=== PATIENT | male | born 1970 | race African-American/Black ===

== ENCOUNTER 2017-01-04 02:52 | Inpatient (IN) | payer BC ==
[2017-01-04] MEDS ORDERED: PNEUMONIA PROTOCOL UTILIZED 1 EACH MISC PO PRN (03:19)
[2017-01-04] MEDS ORDERED: IPRATROPIUM-ALBUTEROL 3 ML NEB INHALATION STA (03:25)
[2017-01-04] MEDS ORDERED: PIPERACILLIN-TAZOBACTAM 3.375 GM in DEXTROSE/WATER 1 50ML.BAG IVPB STA (03:25)
[2017-01-04] MEDS ORDERED: LEVOFLOXACIN 750MG-D5W PMX 750 MG in DEXTROSE/WATER 1 150ML.BAG IVPB STA (03:25)
[2017-01-04] MEDS ORDERED: SODIUM CHLORIDE 0.9% 1,000 ML IV STA (03:31)
[2017-01-04] MEDS ORDERED: MORPHINE SULFATE 4 MG/ML SYRINGE IVP STA (03:31)
--- NOTE | 2017-01-04 03:31 | ED ---
General Adult HPI - General Chief complaint: Shortness of Breath Stated complaint: SOB Time Seen by Provider: 01/04/17 03:00 Source: patient, EMS, RN notes reviewed, old records reviewed Mode of arrival: EMS Limitations: no limitations - History of Present Illness Initial comments: This is a 46-year-old male here for evaluation.Patient presents for evaluation regarding cough congestion shortness of breath. Patient was presented in transfer by EMS, history is obtained from patient and EMS. Patient is having severe cough and congestion, diagnosis of pneumonia. This time patient denies any new complaints he states that he is hungry - Related Data Allergies Allergy/AdvReac Type Severity Reaction Status Date / Time No Known Allergies Allergy Verified 01/04/17 02:59 Review of Systems ROS Statement: Those systems with pertinent positive or pertinent negative responses have been documented in the HPI. ROS Other: All systems not noted in ROS Statement are negative. Past Medical History Past Medical History: COPD History of Any Multi-Drug Resistant Organisms: None Reported Additional Past Surgical History / Comment(s): left eye repair Past Psychological History: No Psychological Hx Reported Smoking Status: Never smoker Past Alcohol Use History: None Reported Past Drug Use History: None Reported General Exam Limitations: no limitations General appearance: alert, in no apparent distress Head exam: Present: atraumatic, normocephalic, normal inspection Eye exam: Present: normal appearance, PERRL, EOMI. Absent: scleral icterus, conjunctival injection, periorbital swelling ENT exam: Present: normal exam, mucous membranes moist Neck exam: Present: normal inspection. Absent: tenderness, meningismus, lymphadenopathy Respiratory exam: Present: normal lung sounds bilaterally. Absent: respiratory distress, wheezes, rales, rhonchi, stridor Cardiovascular Exam: Present: regular rate, normal rhythm, normal heart sounds. Absent: systolic murmur, diastolic murmur, rubs, gallop, clicks GI/Abdominal exam: Present: soft, normal bowel sounds. Absent: distended, tenderness, guarding, rebound, rigid Extremities exam: Present: normal inspection, full ROM, normal capillary refill. Absent: tenderness, pedal edema, joint swelling, calf tenderness Back exam: Present: normal inspection Neurological exam: Present: alert, oriented X3, CN II-XII intact Psychiatric exam: Present: normal affect, normal mood Skin exam: Present: warm, dry, intact, normal color. Absent: rash Course Vital Signs 01/04/17 02:53 Temperature 100.1 F H Pulse Rate 96 Respiratory 20 Rate Blood Pressure 127/75 O2 Sat by Pulse 95 Oximetry - Reevaluation(s) Reevaluation #1: 01/04/17 03:30 Patient's transfer paperwork is reviewed Medical Decision Making - Medical Decision Making 38 male to the ER for evaluation regarding shortness of breath. Severe cough. Patient will be admitted for nosocomial pneumonia secondary to recent auscultation. Patient also had finding of fluid in his mediastinum, she was transferred over concern regarding this. Patient is in no acute distress P patient be admitted for IV antibiotics and cardiopulmonary resuscitation and management Disposition Clinical Impression: Acute exacerbation of chronic obstructive airways disease, Nosocomial pneumonia Disposition: ADMITTED IP TO THIS HOSP Condition: Fair Referrals: None,Stated [Primary Care Provider] - 1-2 days
[2017-01-04] MEDS: SODIUM CHLORIDE 0.9% 1,000 ML IV SCH ×3 (03:50→23:34)
[2017-01-04] MEDS ORDERED: PIPERACILLIN-TAZOBACTAM 3.375 GM in DEXTROSE/WATER 1 50ML.BAG IVPB SCH (06:00)
[2017-01-04] MEDS ORDERED: ENOXAPARIN 40 MG/0.4 ML SYRINGE SQ SCH (06:15)
[2017-01-04] MEDS: methylPREDNISolone SOD SUCCI 125 MG/2 ML VIAL IV SCH ×4 (06:29→23:33)
--- NOTE | 2017-01-04 06:36 | P.HPIM ---
History of Present Illness H&P Date: 01/04/17 Chief Complaint: Shortness of breath This is a 46-year-old male who was recently diagnosed with asthma/COPD was transferred here from [facility] ER for evaluation of shortness of breath , fever and possibly fluid in anterior mediastinum. 6 days prior to this admission, this last Thursday patient developed significant respiratory distress at work and had to be taken to the emergency department where he was found to be wheezy, and hypoxic and was treated with Solu-Medrol, nebulizer and ceftriaxone. Chart review shows that he received 1 dose of Zithromax at that time as well. Next day he was discharged home with Augmentin for sinusitis, Flonase and Mucinex. Patient felt that he has never truly improved and continued to be short of breath, dry cough, wheezing, sinus pressure, subjective fevers and chills with poor appetite and extreme fatigue. Yesterday his symptoms worsen and he came back to the emergency department where he was found to be tachycardic and hypoxic. He had CT angiogram that ruled out pulmonary embolism showed nodular and she bilateral pulmonary infiltrates and anterior mediastinal structure that was the radiologist most likely thymus with differential being small amount of blood. Patient was referred to our institution for further correlation. Review of blood work from the outside ER showed normal white blood cell count increased as in the [place] and monocytes. Unremarkable electrolytes 2 years prior to this admission patient started developing intermittent shortness of breath and wheezing with dry cough. 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 No chest pain or hemoptysis, orthopnea, PND or leg swelling. About 9 months ago since his symptoms were not improving he was referred to pulmonary function tests by his PCP that revealed bronchoobstructive changes and he was diagnosed with COPD. Patient continued to work in the same place with continuous exposure without protective equipment. He is symptoms of shortness of breath and cough typically get worse during week and somewhat better on weekends. He has had multiple visits to emergency department for shortness of breath, wheezing, sinus congestion. This current episode 6 days ago actually started at work after exposure to dust and again not wearing protective. Patient is lifelong nonsmoker. Emergency department he should receive a breathing treatment antibiotics and steroids and currently feeling somewhat better. He denies any travel, pets, sick contacts, diarrhea abdominal pain chest pain. She's been having some epigastric discomfort for which a month ago he underwent EGD that was normal. Review of Systems Constitutional: Reports anorexia, Reports chills, Reports fatigue, Reports fever , Reports malaise, Reports sweats, Reports weakness Cardiovascular: Reports decreased exercise tolerance, Reports dyspnea on exertion, Denies chest pain, Denies paroxysmal nocturnal dyspnea Respiratory: Reports as per HPI Gastrointestinal: Reports as per HPI Genitourinary: Denies nocturia, Denies polyuria Musculoskeletal: Denies myalgias Integumentary: Denies pruritus, Denies rash Neurological: Denies numbness, Denies weakness Psychiatric: Denies anxiety, Denies depression Endocrine: Reports weight change, Denies fatigue Allergic/Immunologic: Reports allergic rhinitis, Reports persistent infections, Reports wheezing Past Medical History Past Medical History: COPD History of Any Multi-Drug Resistant Organisms: None Reported Additional Past Surgical History / Comment(s): left eye repair Past Psychological History: No Psychological Hx Reported Smoking Status: Never smoker Past Alcohol Use History: None Reported Past Drug Use History: None Reported - Past Family History Mother Family Medical History: Diabetes Mellitus, Hypertension Father Family Medical History: No Reported History Medications and Allergies Allergies Allergy/AdvReac Type Severity Reaction Status Date / Time No Known Allergies Allergy Verified 01/04/17 02:59 Physical Exam Vitals: Vital Signs Temp Pulse Pulse Resp BP BP Pulse Ox 01/04/17 05:16 97.6 F 98 20 110/70 96 01/04/17 04:44 97.5 F L 98 18 123/77 97 01/04/17 04:07 98 01/04/17 04:00 20 01/04/17 03:56 94 20 123/77 99 01/04/17 03:41 94 01/04/17 02:53 100.1 F H 96 20 127/75 95 Intake and Output 01/03/17 01/03/17 01/04/17 14:59 22:59 06:59 Other: Weight 70.307 kg Patient Weight 01/04/17 06:59 Weight 70.307 kg - Constitutional General appearance: cooperative, no acute distress, thin - EENT Eyes: EOMI, PERRLA, no scleral icterus - Neck Neck: no lymphadenopathy, no stridor, no thyromegaly - Respiratory Respiratory: bilateral: CTA, diminished, negative: rales, rhonchi, wheezing, prolonged expiration - Cardiovascular Rhythm: regular Heart sounds: normal: S1, S2 - Gastrointestinal General gastrointestinal: no organomegaly, soft, no tenderness - Integumentary Possible clubbing - Neurologic Neurologic: CNII-XII intact - Psychiatric Psychiatric: A&O x's 3 Thrombosis Risk Factor Assmnt - DVT/VTE Prophylaxis DVT/VTE Prophylaxis: Mechanical Prophylaxis ordered - Choose All That Apply Any of the Below Risk Factors Present?: Yes Each Factor Represents 1 point: Abnormal pulmonary function (COPD), Age 41-60 years Other Risk Factors: No Other congenital or acquired thrombophilia - If yes, enter type in comment: No Thrombosis Risk Factor Assessment Total Risk Factor Score: 2 Thrombosis Risk Factor Assessment Level: Low Risk Assessment and Plan (1) Acute respiratory failure with hypoxia Narrative/Plan: As documented in notes and emergency department with oxygen 89% This patient has had prolonged respiratory difficulties for 2 year with recent worsening and continuous exposure to dust at work CT shows some bilateral patchy infiltrates He also has serous criteria with tachycardia and fever At this point of time infectious versus noninfectious etiology has been considered Infectious etiology being typical or atypical bronchopneumonia and bronchitis/ bronchiolitis. Interestingly patient did not receive full coverage for neither of this in the previous institution, so at this point of time starting continue levofloxacin We'll obtain sputum Gram stain and culture. Patient able to produce sputum and blood cultures ordered, and I will obtain Legionella antigen as well All to noninfectious causes reactive airway dysfunction syndrome and hypersensitivity pneumonitis are considered Continue Solu-Medrol and DuoNeb treatments Pulmonology service has been consulted and we will await their further input Re: Findings in anterior mediastinotomy we will have to discuss this with our radiologists here to clarify this finding Patient strongly advised to wear protective equipment work or change work space Status: Acute (2) Acute sinusitis Narrative/Plan: This could be a part of his exposure to allergen Joi my differential would be some sort of vasculitis His creatinine was normal I'm repeating the blood work and we'll obtain UA Continue Flonase and anti- congestion and antibiotic Status: Acute Time with Patient: Greater than 30
[2017-01-04] MEDS: IPRATROPIUM-ALBUTEROL 3 ML NEB INHALATION SCH ×4 (07:06→20:49)
[2017-01-04 07:54] LABS: Basophils % (A) 0 %; CH 28.8; Eosinophils # (A) 0.1 k/uL (0-0.7); Eosinophils % (A) 1 %; HCT 41.9 % (39.0-53.0); HDW 2.69; HGB 13.6 gm/dL (13.0-17.5); Luc # (Auto) 0.07; Luc % (Auto) 1; Lymphocytes # (A) 0.4 k/uL (1.0-4.8); Lymphocytes % (A) 6 %; MCH 29.5 pg (25.0-35.0); MCHC 32.5 g/dL (31.0-37.0); MCV 90.6 fL (80.0-100.0); Mean Platelet Volume 7.5; Monocytes # (A) 0.2 k/uL (0-1.0); Monocytes % (A) 3 %; Neutrophils # (A) 5.9 k/uL (1.3-7.7); Neutrophils % (A) 89 %; RBC 4.62 m/uL (4.30-5.90); RDW 13.9 % (11.5-15.5); WBC 6.6 k/uL (3.8-10.6); WBC (Perox) 6.51
[2017-01-04 08:09] LABS: ALT 27 U/L (21-72); AST 14 U/L (17-59); Alkaline Phosphatase 91 U/L (38-126); Anion Gap 11 mmol/L; Blood Urea Nitrogen 11 mg/dL (9-20); Calcium 8.2 mg/dL (8.4-10.2); Carbon Dioxide 20 mmol/L (22-30); Chloride 109 mmol/L (98-107); Glucose 119 mg/dL (74-99); Non-African American GFR(MDRD) >60 (>60 ml/min/1.73 sqM); Potassium 4.5 mmol/L (3.5-5.1); Sodium 140 mmol/L (137-145); Total Bilirubin 1.4 mg/dL (0.2-1.3); Total Protein 7.1 g/dL (6.3-8.2)
[2017-01-04 08:58] LABS: Appearance,Urine Clear (Clear); Bilirubin,Urine Negative (Negative); Glucose,Urine (UA) Negative (Negative); Ketones,Urine Trace (Negative); Leukocyte Esterase,Urine Negative (Negative); Nitrite,Urine Negative (Negative); PH, Urine 6.5 (5.0-8.0); Protein,Urine Negative (Negative); Specific Gravity,Urine 1.007 (1.001-1.035); UA Billing (MACRO vs. MICRO) CHEM; Urobilinogen,Urine <2.0 mg/dL (<2.0)
[2017-01-04] MEDS: FLUTICASONE 50MCG/SPRAY NASAL 16GM EA NOSTRIL SCH (09:27)
[2017-01-04] MEDS: OXYMETAZOLINE 0.05% NASL SPRAY 1 SPRAY BOTTLE NASAL SCH ×2 (09:27→21:14)
--- NOTE | 2017-01-04 10:09 | XR ---
EXAMINATION TYPE: XR chest 2V DATE OF EXAM: 01/04/2017 HISTORY: sob. REFERENCE: NONE. FINDINGS: There is metallic shrapnel in the left hemithorax. Lung volumes are prominent. The lungs ar e clear. Pleural space are clear. Heart size is normal. IMPRESSION: 1. COPD. 2. EVIDENCE OF PREVIOUS PENETRATING TRAUMA TO THE LEFT CHEST.
--- NOTE | 2017-01-04 10:35 | P.PN ---
Subjective Principal diagnosis: The patient is a 46-year-old -[place] male with no known history of smoking that was recently diagnosed with COPD that was transferred here for acute COPD exacerbation, the patient had a CT of his chest that showed bilateral patchy infiltrates, he presented with sirs criteria with fever and tachycardia, he started on systemic steroids scheduled and when necessary breathing treatments and Levaquin. Apparently the patient was previously hospitalized overnight in [place] for an acute COPD exacerbation and discharged home and Augmentin for sinusitis. The patient denies being given any steroids to go home with, The patient does give a history of environmental possible exposure to fiberglass. Patient still complain of shortness of air but does feel marginally better today , denies any chest pain or pleuritic discomfort. No acute events overnight Objective - Vital Signs Vital signs: Vital Signs Temp 98.5 F 01/04/17 07:00 Pulse 96 01/04/17 07:10 Resp 20 01/04/17 07:00 BP 116/75 01/04/17 07:00 Pulse Ox 96 01/04/17 07:00 Intake & Output 01/03/17 01/04/17 01/04/17 18:59 06:59 18:59 Output Total 350 Balance -350 Weight 70.307 kg Output: Urine 350 - Exam Constitutional: No acute distress, conversant, pleasant Eyes: Anicteric sclerae, moist conjunctiva, no lid-lag, PERRLA ENMT: NC/AT,Oropharynx clear, no erythema, exudates Neck:Supple, FROM, no masses, or JVD, No carotid bruits; No thyromegaly Lungs: Minimal wheezes poor aeration, Normal respiratory effort, no accessory muscle use Cardiovascular: Heart regular in rate and rhythm, No murmurs, gallops, or rubs no peripheral edema Abdominal: Soft Nontender, nom distended, no guarding, no rebound or rigidity, Normoactive bowel sounds No hepatomegaly, No splenomegaly, No palpable mass No abdominal wall hernia noted Skin: Normal temperature, tone, texture, turgor, No induration No subcutaneous nodules, No rash, lesions, No ulcers Extremities:No digital cyanosis No clubbing, Pedal pulses intact and symmetrical Radial pulses intact and symmetrical Normal gait and station, No calf tenderness Psychiatric: Alert and oriented to person, place and time, Appropriate affect Intact judgement Neuro: Muscles Strength 5/5 in all 4 extremities, Sensation to light touch grossly present throughout, Cranial nerves II-XII grossly intact. No focal sensory deficits - Labs CBC & Chem 7: 01/04/17 07:12 01/04/17 07:12 Labs: Abnormal Lab Results - Last 24 Hours (Table) 01/04/17 01/04/17 01/04/17 Range/Units 07:12 07:12 08:00 Lymphocytes # 0.4 L (1.0-4.8) k/uL Chloride 109 H (98-107) mmol/L Carbon Dioxide 20 L (22-30) mmol/L Glucose 119 H (74-99) mg/dL Calcium 8.2 L (8.4-10.2) mg/dL Total Bilirubin 1.4 H (0.2-1.3) mg/dL AST 14 L (17-59) U/L Urine Ketones Trace H (Negative) Assessment and Plan (1) Acute exacerbation of chronic obstructive airways disease Narrative/Plan: Likely secondary to interstitial pneumonia/ ILD versus hypersensitivity pneumonitis * Patient presented with dyspnea cough and fever * Continue current treatment plan with systemic steroids scheduled and when necessary bronchodilator breathing treatments and IV antibiotics * Blood cultures obtained and sent, will check urine studies and we'll try to obtain a sputum culture and start patient on Mucinex * Awaiting further recommendation from pulmonary consult Status: Acute (2) Interstitial pneumonia Status: Acute (3) Acute sinusitis Status: Acute
[2017-01-04] MEDS: guaiFENesin 600 MG TABLET.ER PO SCH ×2 (15:14→21:15)
[2017-01-04] MEDS: MORPHINE SULFATE 4 MG/ML SYRINGE IVP PRN (21:12)
[2017-01-05] MEDS ORDERED: ALPRAZolam 0.25 MG TAB PO PRN (01:11)
[2017-01-05] MEDS: IPRATROPIUM-ALBUTEROL 3 ML NEB INHALATION PRN (01:17)
[2017-01-05] MEDS ORDERED: LEVOFLOXACIN 750MG-D5W PMX 750 MG in DEXTROSE/WATER 1 150ML.BAG IVPB SCH (06:00)
[2017-01-05] MEDS: methylPREDNISolone SOD SUCCI 125 MG/2 ML VIAL IV SCH ×4 (06:43→23:35)
[2017-01-05 06:52] LABS: Basophils % (A) 0 %; CH 28.8; CHCM 31.8; Eosinophils # (A) 0.1 k/uL (0-0.7); Eosinophils % (A) 1 %; HCT 42.2 % (39.0-53.0); HDW 2.77; HGB 13.5 gm/dL (13.0-17.5); Luc # (Auto) 0.23; Luc % (Auto) 2; Lymphocytes # (A) 0.6 k/uL (1.0-4.8); Lymphocytes % (A) 6 %; MCH 29.1 pg (25.0-35.0); MCHC 32.1 g/dL (31.0-37.0); MCV 90.9 fL (80.0-100.0); Mean Platelet Volume 7.3; Monocytes % (A) 8 %; Neutrophils # (A) 9.7 k/uL (1.3-7.7); Neutrophils % (A) 84 %; RBC 4.64 m/uL (4.30-5.90); WBC 11.6 k/uL (3.8-10.6); WBC (Perox) 12.45
[2017-01-05] MEDS ORDERED: SODIUM CHLORIDE 0.9% 1,000 ML IV ONE (07:09)
[2017-01-05] MEDS: IPRATROPIUM-ALBUTEROL 3 ML NEB INHALATION SCH ×4 (07:24→19:31)
[2017-01-05] MEDS: ALPRAZolam 0.25 MG TAB PO PRN (07:25)
--- NOTE | 2017-01-05 07:53 | XR ---
EXAMINATION TYPE: XR chest 2V DATE OF EXAM: 01/05/2017 COMPARISON: Prior chest x-ray 01/04/2017 HISTORY: Pneumonia TECHNIQUE: Frontal and lateral views of the chest are obtained. FINDINGS: Metallic foreign body again noted over the left lower lobe. No pneumothorax or pleural eff usion. Heart is small. No evident airspace disease. Patient is rotated. Pulmonary vascularity and hil a are stable. IMPRESSION: No acute cardiopulmonary process. Stable exam. Radiopaque foreign body is unchanged.
[2017-01-05 08:31] LABS: Anion Gap 10 mmol/L; Blood Urea Nitrogen 9 mg/dL (9-20); Calcium 8.3 mg/dL (8.4-10.2); Carbon Dioxide 24 mmol/L (22-30); Chloride 108 mmol/L (98-107); Glucose 121 mg/dL (74-99); Non-African American GFR(MDRD) >60 (>60 ml/min/1.73 sqM); Potassium 3.8 mmol/L (3.5-5.1); Sodium 142 mmol/L (137-145)
[2017-01-05] MEDS: guaiFENesin 600 MG TABLET.ER PO SCH ×2 (10:59→21:11)
[2017-01-05] MEDS: OXYMETAZOLINE 0.05% NASL SPRAY 1 SPRAY BOTTLE NASAL SCH ×2 (10:59→23:30)
[2017-01-05] MEDS: FLUTICASONE 50MCG/SPRAY NASAL 16GM EA NOSTRIL SCH (10:59)
[2017-01-05] MEDS: SODIUM CHLORIDE 0.9% 1,000 ML IV SCH ×2 (11:00→21:12)
[2017-01-05 12:09] VITALS: BMI 20.4
[2017-01-05] MEDS ORDERED: RX INFO: IV CONTRAST WAS GIVEN 1 EACH MISC MISCELLANE PRN (13:18)
[2017-01-05] MEDS: BENZOCAINE/MENTHOL LOZENG 1 EACH LOZENGE MUCOUS MEM PRN ×3 (13:23→21:29)
--- NOTE | 2017-01-05 15:39 | CT ---
EXAMINATION TYPE: CT soft tissue neck w con DATE OF EXAM: 01/05/2017 HISTORY: Difficulty swallowing, cough and chest pain COMPARISON: NONE CT DLP: 844 mGycm. Automated Exposure Control for Dose Reduction was Utilized. TECHNIQUE: CT scan of the neck is performed with IV Contrast, patient injected with 100 mL of Omnipa que 300, axial images are obtained, coronal and sagittal reformatted images are reviewed. FINDINGS: Airway: Nasopharyngeal airway is patent. There is some prominence of the adenoid tonsils posterior na sopharynx. Oropharyngeal airway is narrowed due to palatine tonsillar prominence. Region of epiglotti s and vallecula appears within normal limits. Hypopharyngeal airway is felt within normal limits. Thy roid gland is felt within normal limits. Visualized lung apices are clear Parotid/submandibular glands: No gross abnormality seen. Carotid/Vascular Structures: No significant plaque or stenosis at the carotid bulb level bilaterally Osseous Structures: There is S-shaped scoliosis in the cervical thoracic spine on coronal images. The re is loss of normal curvature on sagittal images. There is moderate spurring and disc space narrowin g at C4-C5 and C5-C6 levels. Other: There is completely opacified ethmoid and sphenoid sinuses bilaterally without suspicious jenni ical destruction,. There is new moderate mucosal thickening with dependent air-fluid levels in both m axillary sinuses, right worse than left. There is completely opacified frontal sinuses. Patient has very little fat making evaluation suboptimal. There appears to be mild to moderate diffus e fluid and fat stranding submandibular level bilaterally with scattered prominent but subcentimeter lymph nodes. There are prominent lymph nodes throughout the supraclavicular region and bilateral neck some encasing adenopathy difficult to exclude, for reference left infraclavicular region adjacent to thyroid gland. Curvilinear soft tissue anterior superior mediastinum could reflect thymus tissue which would be abno rmal in patient this age IMPRESSION: 1. Prominent paranasal pansinusitis. 2. Nonspecific but suspicious bilateral neck adenopathy consider infectious, inflammatory, or neoplas tic etiology. Consider PET/CT correlation. 3. Abnormal curvilinear soft tissue anterior superior mediastinum suspicious for thymic rebound or le teddy. Clinical correlation advised.
--- NOTE | 2017-01-05 15:58 | P.CNPUL ---
History of Present Illness Consult date: 01/05/17 Reason for consult: pneumonia History of present illness: 46-year-old -Greek male patient was transferred from [facility] because of shortness of breath and suspected pneumonia. The patient started having increased cough, along with some burning sensation over his neck area and the posterior throat. His cough was quite vigorous and he was bringing up minimal amount of sputum. No hemoptysis. No pleurisy. No chest pain. He started getting progressively weak and he also reported diminished appetite and subjective sensation of fever. For that reason the patient went to the [facility] with a CAT scan of the chest was done and showed hazy pulmonary infiltrates more so on the left lower lobe posteriorly and some minimal changes in the right side in addition. There was also some superior mediastinal fullness probably later to a thymic ordered and extension into the superior mediastinum. No lymphadenopathy. No lung masses or lesions. The patient accordingly was transferred to [facility] for further evaluation and treatment. He was seen by the medical group and he was started on antibiotics and currently is on a course of Levaquin. Since he came into the hospital, the patient has remained afebrile. No fever. No chills. No leukocytosis. He claims that he has underlying COPD. He has smoked probably 20 -pack-years and he has been exposed to fiberglass as used to work for [employer] in [place] [employer] [facility] for total of 3 years and he describes her work environment to be extremely contaminated with fiberglass particles another industrial solution. Along with his ongoing respiratory difficulties the patient is having fullness and congestion his sinuses along with significant nasal congestion and drainage and postnasal drip. For all this reasons upon reconsultation was requested. No nausea. No vomiting. No change in mental status. No other complaints otherwise. Review of Systems Constitutional: Reports anorexia, Reports chills, Reports fatigue, Reports fever , Reports malaise, Reports sweats, Reports weakness Cardiovascular: Reports decreased exercise tolerance, Reports dyspnea on exertion, Denies chest pain, Denies paroxysmal nocturnal dyspnea Respiratory: Reports as per HPI Gastrointestinal: Reports as per HPI Genitourinary: Denies nocturia, Denies polyuria Musculoskeletal: Denies myalgias Integumentary: Denies pruritus, Denies rash Neurological: Denies numbness, Denies weakness Psychiatric: Denies anxiety, Denies depression Endocrine: Reports weight change, Denies fatigue Allergic/Immunologic: Reports allergic rhinitis, Reports persistent infections, Reports wheezing Head and neck the patient is having excessive nasal congestion and stuffiness in addition to burning sensation in the throat. No difficulties in swallowing. Past Medical History Past Medical History: COPD History of Any Multi-Drug Resistant Organisms: None Reported Additional Past Surgical History / Comment(s): left eye repair Past Psychological History: No Psychological Hx Reported Smoking Status: Never smoker Past Alcohol Use History: None Reported Past Drug Use History: None Reported - Past Family History Mother Family Medical History: Diabetes Mellitus, Hypertension Father Family Medical History: No Reported History Medications and Allergies Home Medications Medication Instructions Recorded Confirmed Type Albuterol Inhaler [Ventolin Hfa 2 puff INHALATION RT-Q6H PRN 01/04/17 01/04/17 History Inhaler] Albuterol Nebulized [Ventolin 2.5 mg INHALATION RT-QID 01/04/17 01/04/17 History Nebulized] Albuterol Sulfate [Proair Hfa] 2 puff INHALATION RT-Q6H PRN 01/04/17 01/04/17 History Amoxicillin/Potassium Clav 1 tab PO BID 01/04/17 01/04/17 History [Augmentin 875-125 Tablet] Fluticasone Nasal [place] [Flonase 1 spray EA NOSTRIL DAILY 01/04/17 01/04/17 History Nasal [place]] Ipratropium Nebulized [Atrovent 0.5 mg INHALATION RT-Q6H 01/04/17 01/04/17 History Nebulized] Loratadine [Claritin] 10 mg PO DAILY 01/04/17 01/04/17 History guaiFENesin [Mucinex] 1,200 mg PO DAILY PRN 01/04/17 01/04/17 History Allergies Allergy/AdvReac Type Severity Reaction Status Date / Time No Known Allergies Allergy Verified 01/04/17 08:59 Physical Exam Vitals: Vital Signs Temp Pulse Pulse Resp BP Pulse Ox 01/05/17 15:47 92 01/05/17 15:32 92 01/05/17 14:58 97.6 F 108 H 12 119/65 97 01/05/17 11:33 88 01/05/17 11:23 84 01/05/17 07:41 104 H 01/05/17 07:24 108 H 01/05/17 07:00 96.2 F L 103 H 18 120/91 95 01/05/17 01:29 96 01/05/17 01:17 92 01/04/17 23:00 97.4 F L 91 18 124/75 96 01/04/17 21:01 80 01/04/17 20:49 88 01/04/17 16:22 92 01/04/17 16:17 92 Intake and Output 01/05/17 01/05/17 01/05/17 06:59 14:59 22:59 Intake Total 1200 Output Total 1400 Balance -200 Intake: Intake, IV Titration 1200 Amount Sodium Chloride 0.9% 1, 1200 000 ml @ 100 mls/hr IV . Q10H ROBERTO Rx#:[id number] Output: Urine 1400 Other: # Voids 3 Weight 70.307 kg Patient Weight 01/06/17 06:59 Weight 70.307 kg Gen. appearance the patient is calm and comfortable and is not in acute distress. Head exam was generally normal. There was no scleral icterus or corneal arcus. Mucous membranes were moist. Neck is supple and there is positive JVDs. No lesions or masses can be palpated over the neck. There may be an underlying slightly enlargement of the thyroid gland. Yet there is no neck stiffness. No significant lymphadenopathy in his neck or the supraclavicular area. Lung sounds are diminished bilaterally. The patient is getting a very poor inspiratory effort. Unable to do a complete lung exam as the patient's breathing is quite erratic and he is taking only very shallow breaths. Scattered rales can be. The lung bases bilaterally.Cardiac exam revealed the PMI to be normally situated and sized. The rhythm was regular and no extrasystoles were noted during several minutes of auscultation. The first and second heart sounds were normal and physiologic splitting of the second heart sound was noted. There were no murmurs, rubs, clicks, or gallops.Abdominal exam revealed normal bowel sounds. The abdomen was soft, non- tender, and without masses, organomegaly, or appreciable enlargement of the abdominal aorta. Abdomen extremitiesExamination of the extremities revealed easily palpable radial, femoral and pedal pulses. There was no cyanosis, clubbing or edema. Neurologically the patient is awake 3, awake and alert and there is no focal neurological deficits. Skin examination is negative for any rashes or ulcers or wounds. Skeletal exam is normal for any fractures or any major deformities. Results - Laboratory Findings CBC and BMP: 01/05/17 06:40 01/05/17 07:55 Abnormal lab findings: Abnormal Labs 01/04/17 01/04/17 01/04/17 07:12 07:12 08:00 WBC Neutrophils # Lymphocytes # 0.4 L Chloride 109 H Carbon Dioxide 20 L Glucose 119 H Plasma Lactic Acid Miguel Calcium 8.2 L Total Bilirubin 1.4 H AST 14 L Urine Ketones Trace H 01/04/17 01/05/17 01/05/17 23:00 06:12 06:40 WBC 11.6 H Neutrophils # 9.7 H Lymphocytes # 0.6 L Chloride Carbon Dioxide Glucose Plasma Lactic Acid Miguel 2.2 H* 2.9 H* Calcium Total Bilirubin AST Urine Ketones 01/05/17 07:55 WBC Neutrophils # Lymphocytes # Chloride 108 H Carbon Dioxide Glucose 121 H Plasma Lactic Acid Miguel Calcium 8.3 L Total Bilirubin AST Urine Ketones - Diagnostic Findings Chest x-ray: image reviewed Assessment and Plan Plan: Assessment 1 acute pneumonia most significant in the left lower lobe posteriorly along with some limited haziness in the right. Possible community-acquired. No evidence of any chronic interstitial lung disease or any advanced emphysematous change on the CAT scan of the chest 2 questionable thymic growth in the anterior mediastinum. We'll review this with radiology 3 sinusitis suspected in addition to ongoing pain in the posterior oropharynx. On examination the patient has jugular vein Distention without any clear neck masses. We'll proceed with a CAT scan of the neck accordingly. 4 smoker 5 occupational exposure to fiberglass dust Plan Continue Levaquin as broad-spectrum antibiotics for pneumonia and sinus infection. Sputum Gram stain and culture. DuoNeb nebulized treatments around the clock. Proceed with a CAT scan of the neck. Proceed with addition of Tussionex for cough and Cepacol dosages. Continue with systemic steroids. We' ll continue to follow. Will also check the CAT scan of the chest films would radiology to make sure there is no mediastinal lesions or masses.
--- NOTE | 2017-01-05 16:49 | P.PN ---
Subjective Principal diagnosis: Shortness of breath Patient complaining of sore throat and shortness of breath he says he is better with oxygen does have complaints of cough denies any fever Objective - Vital Signs Vital signs: Vital Signs Temp 96.2 F L 01/05/17 07:00 Pulse 104 H 01/05/17 07:41 Resp 18 01/05/17 07:00 BP 120/91 01/05/17 07:00 Pulse Ox 95 01/05/17 07:00 Intake & Output 01/04/17 01/05/17 01/05/17 18:59 06:59 18:59 Intake Total 1650 1700 Output Total 300 2100 Balance 1350 -400 Intake: Intake, IV Titration 850 1200 Amount Piperacillin-Tazobactam 3 50 .375 gm In Dextrose/Water 1 50ml.bag @ 12.5 mls/hr IVPB Q8H ROBERTO Rx#: [id number] Sodium Chloride 0.9% 1, 800 1200 000 ml @ 100 mls/hr IV . Q10H ROBERTO Rx#:[id number] Oral 800 500 Output: Urine 300 2100 Other: # Voids 1 - Exam Constitutional: No acute distress, conversant, pleasant Eyes: Anicteric sclerae, moist conjunctiva, no lid-lag PERRLA ENMT: NC/AT Oropharynx clear, no erythema, exudates lungs: no crackles Normal respiratory effort, no accessory muscle use Cardiovascular: Heart regular in rate and rhythm, No murmurs, gallops, or rubs No peripheral edema Abdominal: Soft Nontender, no guarding, rebound or rigidity Extremities: no edema - Labs CBC & Chem 7: 01/05/17 06:40 01/05/17 07:55 Labs: Abnormal Lab Results - Last 24 Hours (Table) 01/04/17 01/05/17 01/05/17 Range/Units 23:00 06:12 06:40 WBC 11.6 H (3.8-10.6) k/uL Neutrophils # 9.7 H (1.3-7.7) k/uL Lymphocytes # 0.6 L (1.0-4.8) k/uL Chloride (98-107) mmol/L Glucose (74-99) mg/dL Plasma Lactic Acid Miguel 2.2 H* 2.9 H* (0.7-2.0) mmol/L Calcium (8.4-10.2) mg/dL 01/05/17 Range/Units 07:55 WBC (3.8-10.6) k/uL Neutrophils # (1.3-7.7) k/uL Lymphocytes # (1.0-4.8) k/uL Chloride 108 H (98-107) mmol/L Glucose 121 H (74-99) mg/dL Plasma Lactic Acid Miguel (0.7-2.0) mmol/L Calcium 8.3 L (8.4-10.2) mg/dL Microbiology - Last 24 Hours (Table) 01/04/17 07:12 Blood Culture - Preliminary Blood No Growth after 24 hours 01/04/17 03:50 Blood Culture - Preliminary Blood No Growth after 24 hours Assessment and Plan (1) Pneumonia Narrative/Plan: IV antibiotics and pulmonary following Status: Acute (2) Acute exacerbation of chronic obstructive airways disease Narrative/Plan: Patient feels that he is not feeling better clinically does not seem to be in distress. Await pulmonary eval continue IV steroids and nebulizers Status: Acute (3) Acute sinusitis Narrative/Plan: Continue antibiotics Status: Acute
[2017-01-05] MEDS: CHLORPHEN-HYDROcod 8-10mg/5ml 5 ML ORAL.SYRG PO SCH (17:20)
[2017-01-05] MEDS: MORPHINE SULFATE 4 MG/ML SYRINGE IVP PRN (23:22)
[2017-01-06] MEDS: IPRATROPIUM-ALBUTEROL 3 ML NEB INHALATION PRN ×3 (00:06→23:43)
[2017-01-06] MEDS: MORPHINE SULFATE 4 MG/ML SYRINGE IVP PRN (03:57)
[2017-01-06] MEDS: CHLORPHEN-HYDROcod 8-10mg/5ml 5 ML ORAL.SYRG PO SCH (04:28)
[2017-01-06] MEDS: BENZOCAINE/MENTHOL LOZENG 1 EACH LOZENGE MUCOUS MEM PRN ×2 (04:29→15:51)
[2017-01-06] MEDS: methylPREDNISolone SOD SUCCI 125 MG/2 ML VIAL IV SCH ×4 (06:29→23:44)
[2017-01-06] MEDS: SODIUM CHLORIDE 0.9% 1,000 ML IV SCH ×2 (06:33→15:43)
[2017-01-06] MEDS: LEVOFLOXACIN 750 MG TAB PO SCH (08:43)
[2017-01-06] MEDS: guaiFENesin 600 MG TABLET.ER PO SCH ×2 (08:43→20:31)
[2017-01-06] MEDS: FLUTICASONE 50MCG/SPRAY NASAL 16GM EA NOSTRIL SCH (08:44)
[2017-01-06] MEDS: OXYMETAZOLINE 0.05% NASL SPRAY 1 SPRAY BOTTLE NASAL SCH ×2 (08:44→20:30)
[2017-01-06] MEDS: IPRATROPIUM-ALBUTEROL 3 ML NEB INHALATION SCH ×4 (08:52→20:32)
[2017-01-06] MEDS: ALPRAZolam 0.25 MG TAB PO PRN (08:55)
--- NOTE | 2017-01-06 11:59 | US ---
EXAMINATION TYPE: US venous doppler duplex LE LT DATE OF EXAM: 01/06/2017 11:30 AM COMPARISON: NONE CLINICAL HISTORY: Rule out DVT. Left leg pain SIDE PERFORMED: Left TECHNIQUE: The lower extremity deep venous system is examined utilizing real time linear array sonog sony with graded compression, doppler sonography and color-flow sonography. VESSELS IMAGED: External Iliac Vein (EIV) Common Femoral Vein Deep Femoral Vein Greater Saphenous Vein * Femoral Vein Popliteal Vein Small Saphenous Vein * Proximal Calf Veins (* superficial vessels) Left Leg: Appears negative for DVT IMPRESSION: 1. No diagnostic evidence of DVT as visualized.
--- NOTE | 2017-01-06 12:44 | P.PN ---
Subjective Principal diagnosis: Shortness of breath Patient says she's is still feeling short of breath, concerns still having cough , unable to bring up phlegm patient also complained of pain and lower extremity Objective - Vital Signs Vital signs: Vital Signs Temp 98.1 F 01/06/17 07:00 Pulse 96 01/06/17 09:14 Resp 20 01/06/17 07:00 BP 111/81 01/06/17 07:00 Pulse Ox 98 01/06/17 07:00 Intake & Output 01/05/17 01/06/17 01/06/17 18:59 06:59 18:59 Output Total 700 Balance -700 Weight 70.307 kg Output: Urine 700 Other: # Voids 3 3 # Bowel Movements 0 - Exam gen:alert and oriented lungs:clear to auscultation heart:s1s2 abdomen:soft and depressible,non tender ext:no edema, tenderness to palpation and left thigh, no swelling - Labs CBC & Chem 7: 01/05/17 06:40 01/05/17 07:55 Labs: Microbiology - Last 24 Hours (Table) 01/04/17 07:12 Blood Culture - Preliminary Blood No Growth after 48 hours 01/04/17 03:50 Blood Culture - Preliminary Blood No Growth after 48 hours 01/04/17 20:53 Gram Stain - Preliminary Sputum Assessment and Plan (1) Pneumonia Narrative/Plan: IV antibiotics and pulmonary following patient states that he has not been improving. Await pulmonary input. Status: Acute (2) Acute exacerbation of chronic obstructive airways disease Narrative/Plan: Patient feels that he is not feeling better clinically does not seem to be in distress. Await pulmonary eval continue IV steroids and nebulizers Status: Acute (3) Acute sinusitis Narrative/Plan: Continue antibiotics Status: Acute (4) Lower extremity pain Narrative/Plan: We'll check lower extremity Doppler Status: Acute
[2017-01-06] MEDS: ENOXAPARIN 40 MG/0.4 ML SYRINGE SQ SCH (13:08)
[2017-01-06] MEDS: ALPRAZolam 0.25 MG TAB PO SCH ×3 (13:10→21:22)
--- NOTE | 2017-01-06 14:26 | CT ---
EXAMINATION TYPE: CT chest wo con DATE OF EXAM: 01/06/2017 COMPARISON: 01/03/2017 HISTORY: Patient complains of difficulty breathing. CT DLP: 473 mGycm. Automated Exposure Control for Dose Reduction was Utilized. TECHNIQUE: CT scan of the thorax is performed without IV contrast. FINDINGS: LUNGS: There are bilateral areas of consolidation greater on the left suggestive of pneumonia. Follow to resolution to exclude other etiologies including neoplasm. No pneumothorax. Calcified granuloma l eft upper lobe. Right apical pleural bleb noted MEDIASTINUM: Lack of IV contrast is noted to limit evaluation for mediastinal and especially hilar ad enopathy. There are no definitive greater than 1 cm hilar or mediastinal lymph nodes. No cardiomega ly or pericardial effusion is seen. Residual thymic tissue appears present. OTHER: No additional significant abnormality is seen. IMPRESSION: 1. Bilateral patchy areas of infiltrate suggestive of pneumonia. Follow to resolution to exclude othe r etiologies. 2. Nodular right apical pleural thickening measuring 5 mm too small to characterize and could be foll owed on a short-term basis. 3. Assessment for adenopathy is limited be more accurately assessed with a contrast exam. Particular limitation to the supraclavicular region. As noted by recent CT of the neck findings are suspicious f or areas of adenopathy involving the neck.
--- NOTE | 2017-01-06 16:34 | P.PN ---
Subjective 46-year-old -Israeli male patient was transferred from [facility] because of shortness of breath and suspected pneumonia. The patient started having increased cough, along with some burning sensation over his neck area and the posterior throat. His cough was quite vigorous and he was bringing up minimal amount of sputum. No hemoptysis. No pleurisy. No chest pain. He started getting progressively weak and he also reported diminished appetite and subjective sensation of fever. For that reason the patient went to the [facility] with a CAT scan of the chest was done and showed hazy pulmonary infiltrates more so on the left lower lobe posteriorly and some minimal changes in the right side in addition. There was also some superior mediastinal fullness probably later to a thymic ordered and extension into the superior mediastinum. No lymphadenopathy. No lung masses or lesions. The patient accordingly was transferred to [facility] for further evaluation and treatment. He was seen by the medical group and he was started on antibiotics and currently is on a course of Levaquin. Since he came into the hospital, the patient has remained afebrile. No fever. No chills. No leukocytosis. He claims that he has underlying COPD. He has smoked probably 20 -pack-years and he has been exposed to fiberglass as used to work for now [employer] in [place] [employer] [facility] for total of 3 years and he describes her work environment to be extremely contaminated with fiberglass particles another industrial solution. Along with his ongoing respiratory difficulties the patient is having fullness and congestion his sinuses along with significant nasal congestion and drainage and postnasal drip. For all this reasons upon reconsultation was requested. No nausea. No vomiting. No change in mental status. No other complaints otherwise. On 01/06/2017 I'm seeing this patient for a follow-up. The patient claims that he still having difficulty in breathing. Not much of an improvement has occurred over the past 24 hours. He still having cough and chest congestion. No pleurisy. No hemoptysis. CAT scan of the neck was noted and the patient has some nonspecific lymphadenopathy. White cell count is not elevated at 11.6. The patient's pulse ox on room air is around 97%. Doppler of the lower extremity was done and it was negative for DVT. Meanwhile, the patient is still receiving Levaquin for his underlying bilateral pneumonia that was more so in the left upper lobe. Based on this finding, a CAT scan of the chest was ordered and unfortunately the CAT scan was done without contrast. As such the visual ability of the mediastinum is limited. The patient has questionable lymph nodes in the hilum and the mediastinal area. There is however bilateral patchy areas of infiltration suggestive of pneumonia and infiltrate in the left is worse compared to the CAT scan of the chest that was forwarded to us earlier from the outside hospital. Based on this, I'm going to broaden the patient's antibiotic coverage. Objective - Vital Signs Vital signs: Vital Signs Temp 96.7 F L 01/06/17 15:00 Pulse 100 01/06/17 15:35 Resp 16 01/06/17 15:00 BP 117/67 01/06/17 15:00 Pulse Ox 97 01/06/17 15:00 Intake & Output 01/05/17 01/06/17 01/06/17 18:59 06:59 18:59 Output Total 700 900 Balance -700 -900 Weight 70.307 kg Output: Urine 700 900 Other: # Voids 3 3 2 # Bowel Movements 0 1 - Exam Gen. appearance the patient is calm and comfortable and is not in acute distress. Head exam was generally normal. There was no scleral icterus or corneal arcus. Mucous membranes were moist. Neck is supple and there is positive JVDs. No lesions or masses can be palpated over the neck. There may be an underlying slightly enlargement of the thyroid gland. Yet there is no neck stiffness. No significant lymphadenopathy in his neck or the supraclavicular area. Lung sounds are diminished bilaterally. The patient is getting a very poor inspiratory effort. Unable to do a complete lung exam as the patient's breathing is quite erratic and he is taking only very shallow breaths. Scattered rales can be. The lung bases bilaterally.Cardiac exam revealed the PMI to be normally situated and sized. The rhythm was regular and no extrasystoles were noted during several minutes of auscultation. The first and second heart sounds were normal and physiologic splitting of the second heart sound was noted. There were no murmurs, rubs, clicks, or gallops.Abdominal exam revealed normal bowel sounds. The abdomen was soft, non- tender, and without masses, organomegaly, or appreciable enlargement of the abdominal aorta. Abdomen extremitiesExamination of the extremities revealed easily palpable radial, femoral and pedal pulses. There was no cyanosis, clubbing or edema. Neurologically the patient is awake 3, awake and alert and there is no focal neurological deficits. Skin examination is negative for any rashes or ulcers or wounds. Skeletal exam is normal for any fractures or any major deformities. - Labs CBC & Chem 7: 01/05/17 06:40 01/05/17 07:55 Labs: Microbiology - Last 24 Hours (Table) 01/04/17 20:53 Gram Stain - Preliminary Sputum Sputum Culture - Preliminary 01/04/17 07:12 Blood Culture - Preliminary Blood No Growth after 48 hours 01/04/17 03:50 Blood Culture - Preliminary Blood No Growth after 48 hours Assessment and Plan Plan: Assessment 1 acute pneumonia most significant in the left lower lobe posteriorly along with some limited haziness in the right. Possible community-acquired. No evidence of any chronic interstitial lung disease or any advanced emphysematous change on the CAT scan of the chest 01/06/2017, the patient remains symptomatic and he continues to have increased cough and chest congestion. A repeat CAT scan of the chest was done and there is worsening in the left lung pulmonary infiltrate compared to original CAT scan that was forwarded to us from the outside hospital. As such there is evidence of interval progression. The patient has been receiving Levaquin over the past 24 hours. The CAT scan was done without contrast and vomiting though her ability to assess the mediastinum 2 questionable thymic growth in the anterior mediastinum. We'll review this with radiology 3 sinusitis suspected in addition to ongoing pain in the posterior oropharynx. On examination the patient has jugular vein distention without any clear neck masses. We'll proceed with a CAT scan of the neck accordingly. 4 smoker 5 occupational exposure to fiberglass dust Plan Continue Levaquin as broad-spectrum antibiotics for pneumonia and sinus infection. The antibiotic coverage by addition of Zosyn. Reviewed the CAT scan of the chest with the radiologist with a possibility of this patient having a questionable mediastinal lymphadenopathy or a thymic lesion. Continue Tussionex for cough. Had IV Solu-Medrol. We'll continue to follow. As for repeating the CAT scan of the chest with contrast to have a better assessment of the mediastinum.
[2017-01-06] MEDS: PIPERACILLIN-TAZOBACTAM 3.375 GM in DEXTROSE/WATER 1 50ML.BAG IVPB SCH ×2 (17:55→23:45)
[2017-01-06] MEDS: CHLORPHEN-HYDROcod 8-10mg/5ml 5 ML ORAL.SYRG PO PRN (21:52)
[2017-01-07] MEDS: SODIUM CHLORIDE 0.9% 1,000 ML IV SCH ×3 (02:20→22:23)
[2017-01-07] MEDS: BENZOCAINE/MENTHOL LOZENG 1 EACH LOZENGE MUCOUS MEM PRN ×2 (04:06→20:34)
[2017-01-07] MEDS: IPRATROPIUM-ALBUTEROL 3 ML NEB INHALATION PRN (04:07)
[2017-01-07] MEDS: methylPREDNISolone SOD SUCCI 125 MG/2 ML VIAL IV SCH ×3 (05:49→17:16)
[2017-01-07] MEDS: IPRATROPIUM-ALBUTEROL 3 ML NEB INHALATION SCH ×4 (08:26→20:12)
[2017-01-07] MEDS: OXYMETAZOLINE 0.05% NASL SPRAY 1 SPRAY BOTTLE NASAL SCH (08:33)
[2017-01-07] MEDS: ENOXAPARIN 40 MG/0.4 ML SYRINGE SQ SCH (08:34)
[2017-01-07] MEDS: ALPRAZolam 0.25 MG TAB PO SCH ×4 (08:34→22:23)
[2017-01-07] MEDS: guaiFENesin 600 MG TABLET.ER PO SCH ×2 (08:34→22:22)
[2017-01-07] MEDS: FLUTICASONE 50MCG/SPRAY NASAL 16GM EA NOSTRIL SCH (08:34)
[2017-01-07] MEDS: LEVOFLOXACIN 750 MG TAB PO SCH (08:34)
[2017-01-07] MEDS: PIPERACILLIN-TAZOBACTAM 3.375 GM in DEXTROSE/WATER 1 50ML.BAG IVPB SCH ×2 (08:34→16:01)
[2017-01-07] MEDS ORDERED: KETOROLAC 30 MG/ML 1 ML VIAL IVP PRN (11:51)
--- NOTE | 2017-01-07 13:11 | P.PN ---
<Reena Kim M - Last Filed: 01/07/17 12:56> Subjective Principal diagnosis: Shortness of breath,bilateral pneumonia 46-year-old -German male patient was transferred from [facility] because of shortness of breath and suspected pneumonia. The patient started having increased cough, along with some burning sensation over his neck area and the posterior throat. His cough was quite vigorous and he was bringing up minimal amount of sputum. No hemoptysis. No pleurisy. No chest pain. He started getting progressively weak and he also reported diminished appetite and subjective sensation of fever. For that reason the patient went to the [facility] with a CAT scan of the chest was done and showed hazy pulmonary infiltrates more so on the left lower lobe posteriorly and some minimal changes in the right side in addition. There was also some superior mediastinal fullness probably later to a thymic ordered and extension into the superior mediastinum. No lymphadenopathy. No lung masses or lesions. The patient accordingly was transferred to [facility] for further evaluation and treatment. He was seen by the medical group and he was started on antibiotics and currently is on a course of Levaquin. Since he came into the hospital, the patient has remained afebrile. No fever. No chills. No leukocytosis. He claims that he has underlying COPD. He has smoked probably 20 -pack-years and he has been exposed to fiberglass as used to work for [employer] in [facility] for total of 3 years and he describes her work environment to be extremely contaminated with fiberglass particles another industrial solution. Along with his ongoing respiratory difficulties the patient is having fullness and congestion his sinuses along with significant nasal congestion and drainage and postnasal drip. For all this reasons upon reconsultation was requested. No nausea. No vomiting. No change in mental status. No other complaints otherwise. On 01/06/2017 I'm seeing this patient for a follow-up. The patient claims that he still having difficulty in breathing. Not much of an improvement has occurred over the past 24 hours. He still having cough and chest congestion. No pleurisy. No hemoptysis. CAT scan of the neck was noted and the patient has some nonspecific lymphadenopathy. White cell count is not elevated at 11.6. The patient's pulse ox on room air is around 97%. Doppler of the lower extremity was done and it was negative for DVT. Meanwhile, the patient is still receiving Levaquin for his underlying bilateral pneumonia that was more so in the left upper lobe. Based on this finding, a CAT scan of the chest was ordered and unfortunately the CAT scan was done without contrast. As such the visual ability of the mediastinum is limited. The patient has questionable lymph nodes in the hilum and the mediastinal area. There is however bilateral patchy areas of infiltration suggestive of pneumonia and infiltrate in the left is worse compared to the CAT scan of the chest that was forwarded to us earlier from the outside hospital. Based on this, I'm going to broaden the patient's antibiotic coverage. On 01/07/2017 the patient has seen in follow-up. He states his breathing has improved from yesterday. However the burning in his throat persists although to a lesser degree. He denies chest pain fever or chills. He is currently on room air, in no acute distress. Hemodynamically stable. He is receiving the Tussionex cough syrup with relief from his coughing. Continues on Levaquin and Zosyn, IV Solu-Medrol and Flonase nasal spray which was added per attending. He has been afebrile. No acute distress noted. She did complain of lower back pain which was radiating to his left thigh which started yesterday for which Toradol was added per attending. On examination lung sounds are diminished bilaterally and more so over the right posterior base. No shortness of breath noted. No wheezing, no rales. Objective - Vital Signs Vital signs: Vital Signs Temp 98.9 F 01/07/17 07:00 Pulse 100 01/07/17 11:46 Resp 16 01/07/17 07:00 BP 136/75 01/07/17 07:00 Pulse Ox 92 L 01/07/17 07:00 Intake & Output 01/06/17 01/07/17 01/07/17 18:59 06:59 18:59 Intake Total 500 290 Output Total 900 1600 Balance -900 -1100 290 Weight 70.307 kg Intake: Oral 500 290 Output: Urine 900 1600 Other: # Voids 2 # Bowel Movements 1 - Exam Gen. appearance the patient is calm and comfortable and is not in acute distress. Head exam was generally normal. There was no scleral icterus or corneal arcus. Mucous membranes were moist. Neck is supple and there is positive JVDs. No lesions or masses can be palpated over the neck. There may be an underlying slightly enlargement of the thyroid gland. Yet there is no neck stiffness. No significant lymphadenopathy in his neck or the supraclavicular area. Lung sounds are diminished bilaterally. The patient is getting a very poor inspiratory effort. Unable to do a complete lung exam as the patient's breathing is quite erratic and he is taking only very shallow breaths. The lung bases dimished bilaterally.Cardiac exam revealed the PMI to be normally situated and sized. The rhythm was regular and no extrasystoles were noted during several minutes of auscultation. The first and second heart sounds were normal and physiologic splitting of the second heart sound was noted. There were no murmurs, rubs, clicks, or gallops.Abdominal exam revealed normal bowel sounds. The abdomen was soft, non-tender, and without masses, organomegaly, or appreciable enlargement of the abdominal aorta. Abdomen extremitiesExamination of the extremities revealed easily palpable radial, femoral and pedal pulses. There was no cyanosis, clubbing or edema. Neurologically the patient is awake 3, awake and alert and there is no focal neurological deficits. Skin examination is negative for any rashes or ulcers or wounds. Skeletal exam is normal for any fractures or any major deformities. - Labs CBC & Chem 7: 01/05/17 06:40 01/05/17 07:55 Labs: Microbiology - Last 24 Hours (Table) 01/04/17 07:12 Blood Culture - Preliminary Blood No Growth after 72 hours 01/04/17 20:53 Gram Stain - Final Sputum Sputum Culture - Final 01/04/17 03:50 Blood Culture - Preliminary Blood No Growth after 72 hours Assessment and Plan Plan: Assessment and Plan Plan: Assessment 1 acute pneumonia most significant in the left lower lobe posteriorly along with some limited haziness in the right. Possible community-acquired. No evidence of any chronic interstitial lung disease or any advanced emphysematous change on the CAT scan of the chest 01/07/2017, the patient verbalizes some improvement in shortness of breath and burning in throat, cough and congestion. A repeat CAT scan of the chest was done and there is worsening in the left lung pulmonary infiltrate compared to original CAT scan that was forwarded to us from the outside hospital. As such there is evidence of interval progression. The patient has been receiving Levaquin over the past 24 hours. The CAT scan was done without contrast and was limited in terms of ability to assess the mediastinum. 2 questionable thymic growth in the anterior mediastinum. We'll review this with radiology 3 sinusitis suspected in addition to ongoing pain in the posterior oropharynx. Currently on Flonase nasal spray 4 smoker 5 occupational exposure to fiberglass dust Plan Continue Levaquin as broad-spectrum antibiotics for pneumonia and sinus infection. The antibiotic coverage by addition of Zosyn. Reviewed the CAT scan of the chest with the radiologist with a possibility of this patient having a questionable mediastinal lymphadenopathy or a thymic lesion. Continue Tussionex for cough. Had IV Solu-Medrol. We'll continue to follow. As for repeating the CAT scan of the chest with contrast to have a better assessment of the mediastinum. <Marcellus Singh - Last Filed: 01/07/17 14:29> Objective - Vital Signs Vital signs: Vital Signs Temp 98.9 F 01/07/17 07:00 Pulse 100 01/07/17 11:46 Resp 16 01/07/17 07:00 BP 136/75 01/07/17 07:00 Pulse Ox 92 L 01/07/17 07:00 Intake & Output 01/06/17 01/07/17 01/07/17 18:59 06:59 18:59 Intake Total 500 290 Output Total 900 1600 875 Balance -900 1100 -585 Weight 70.307 kg Intake: Oral 500 290 Output: Urine 900 1600 875 Other: # Voids 2 3 # Bowel Movements 1 - Labs CBC & Chem 7: 01/05/17 06:40 01/05/17 07:55 Labs: Microbiology - Last 24 Hours (Table) 01/04/17 07:12 Blood Culture - Preliminary Blood No Growth after 72 hours 01/04/17 20:53 Gram Stain - Final Sputum Sputum Culture - Final 01/04/17 03:50 Blood Culture - Preliminary Blood No Growth after 72 hours Assessment and Plan Plan: This is a joint evaluation that was done along with a nurse practitioner. The patient is being seen in follow-up regarding her his bilateral pneumonia. The patient is on accommodation of Zosyn and Levaquin. He is clinically improved compared to yesterday. There is a concern for cervical and mediastinal lymphadenopathy. Unfortunately the CAT scan of the chest was done without contrast. There is also concern of an anterior mediastinal lesion, probably a thymic lesion. As such I'm waiting for this patient to show some further recovery and following that I will do a CAT scan of the chest with contrast to characterize this abnormalities further. The patient is on bronchodilators. The patient on Zosyn and Levaquin. The sputum and the blood cultures of been negative. We'll continue to follow.
[2017-01-07] MEDS: CHLORPHEN-HYDROcod 8-10mg/5ml 5 ML ORAL.SYRG PO PRN (17:16)
[2017-01-08] MEDS: PIPERACILLIN-TAZOBACTAM 3.375 GM in DEXTROSE/WATER 1 50ML.BAG IVPB SCH ×2 (00:33→08:20)
[2017-01-08] MEDS: methylPREDNISolone SOD SUCCI 125 MG/2 ML VIAL IV SCH ×3 (00:33→11:27)
[2017-01-08] MEDS: CHLORPHEN-HYDROcod 8-10mg/5ml 5 ML ORAL.SYRG PO PRN (06:00)
[2017-01-08 07:31] LABS: Glucose,Whole Blood 149 mg/dL (75-99)
[2017-01-08] MEDS: IPRATROPIUM-ALBUTEROL 3 ML NEB INHALATION SCH ×3 (08:03→15:31)
[2017-01-08 08:18] VITALS: BP 121/75; RESP 16; TEMP 97.1
[2017-01-08] MEDS: LEVOFLOXACIN 750 MG TAB PO SCH (08:19)
[2017-01-08] MEDS: FLUTICASONE 50MCG/SPRAY NASAL 16GM EA NOSTRIL SCH (08:19)
[2017-01-08] MEDS: SODIUM CHLORIDE 0.9% 1,000 ML IV SCH (08:20)
[2017-01-08] MEDS: guaiFENesin 600 MG TABLET.ER PO SCH ×3 (08:20→11:27)
[2017-01-08] MEDS: ENOXAPARIN 40 MG/0.4 ML SYRINGE SQ SCH (08:20)
[2017-01-08] MEDS: ALPRAZolam 0.25 MG TAB PO SCH ×2 (08:26→12:49)
--- NOTE | 2017-01-08 08:32 | P.PN ---
Subjective Principal diagnosis: Shortness of breath Patient feeling better today, less shortness of breath, no fever no chills Objective - Vital Signs Vital signs: Vital Signs Temp 97.1 F L 01/08/17 07:00 Pulse 90 01/08/17 08:17 Resp 16 01/08/17 07:00 BP 121/75 01/08/17 07:00 Pulse Ox 97 01/08/17 07:00 Intake & Output 01/07/17 01/08/17 01/08/17 18:59 06:59 18:59 Intake Total 290 290 Output Total 875 700 Balance -585 -410 Intake: Oral 290 290 Output: Urine 875 700 Other: # Voids 3 1 # Bowel Movements 0 - Exam gen:alert and oriented lungs:clear to auscultation heart:s1s2 abdomen:soft and depressible,non tender ext:no edema,, no swelling - Labs CBC & Chem 7: 01/05/17 06:40 01/05/17 07:55 Labs: Abnormal Lab Results - Last 24 Hours (Table) 01/08/17 Range/Units 07:23 POC Glucose (mg/dL) 149 H (75-99) mg/dL Microbiology - Last 24 Hours (Table) 01/04/17 03:50 Blood Culture - Preliminary Blood No Growth after 96 hours 01/04/17 07:12 Blood Culture - Preliminary Blood No Growth after 72 hours 01/04/17 20:53 Gram Stain - Final Sputum Sputum Culture - Final Assessment and Plan (1) Pneumonia Narrative/Plan: IV antibiotics,IV solumedrol pt today stated is feeling better. Status: Acute (2) Acute exacerbation of chronic obstructive airways disease Narrative/Plan: Patient feels that he is not feeling better clinically does not seem to be in distress. Await pulmonary eval continue IV steroids and nebulizers Status: Acute (3) Dysphagia Narrative/Plan: Respiration therapy eval patient is safe to eat regular diet, no signs of aspiration, and patient had breakfast today without any issues Status: Acute (4) Acute sinusitis Narrative/Plan: Continue antibiotics Status: Acute (5) Lower extremity pain Narrative/Plan: Doppler negative for DVT Status: Acute (6) Back pain Narrative/Plan: Back pain better at this time with toradol Status: Acute Plan: Overweight plan from Dr. Singh. Asked RN to walk patient off oxygen to evaluate need for O2. Disposition will be decided after discussing Dr. Singh and evaluation of his oxygen status
[2017-01-08] MEDS: BENZOCAINE/MENTHOL LOZENG 1 EACH LOZENGE MUCOUS MEM PRN (08:38)
[2017-01-08 09:22] LABS: Basophils % (A) 1 %; CH 28.7; Eosinophils % (A) 0 %; HCT 44.4 % (39.0-53.0); HDW 2.69; HGB 14.5 gm/dL (13.0-17.5); Luc # (Auto) 0.15; Luc % (Auto) 2; Lymphocytes # (A) 0.7 k/uL (1.0-4.8); Lymphocytes % (A) 11 %; MCH 29.4 pg (25.0-35.0); MCHC 32.6 g/dL (31.0-37.0); MCV 90.2 fL (80.0-100.0); Mean Platelet Volume 7.6; Monocytes # (A) 0.2 k/uL (0-1.0); Monocytes % (A) 4 %; Neutrophils # (A) 5.1 k/uL (1.3-7.7); Neutrophils % (A) 83 %; RBC 4.92 m/uL (4.30-5.90); RDW 13.8 % (11.5-15.5); WBC 6.2 k/uL (3.8-10.6)
[2017-01-08 09:26] LABS: Blood Urea Nitrogen 17 mg/dL (9-20); Calcium 8.7 mg/dL (8.4-10.2); Chloride 102 mmol/L (98-107); Glucose 182 mg/dL (74-99); Non-African American GFR(MDRD) >60 (>60 ml/min/1.73 sqM); Potassium 3.9 mmol/L (3.5-5.1); Sodium 141 mmol/L (137-145)
[2017-01-08 09:37] LABS: Anion Gap 10 mmol/L; Carbon Dioxide 29 mmol/L (22-30)
[2017-01-08 11:48] VITALS: PULSE 84
[2017-01-08 11:52] LABS: Glucose,Whole Blood 140 mg/dL (75-99)
--- NOTE | 2017-01-08 14:34 | P.DS ---
Providers Date of admission: 01/04/17 03:20 Expected date of discharge: 01/08/17 Attending physician: Divya Go DO Consults: 01/04/17 14:52 Consult Physician Routine Consulting Provider: Pancho Yanez Reason/Comments: newly copd diagnosed. Do you want consulting provider notified?: Yes Primary care physician: Stated None - Discharge Diagnosis(es) (1) Pneumonia Current Visit: Yes Status: Acute (2) Acute exacerbation of chronic obstructive airways disease Current Visit: Yes Status: Acute (3) Dysphagia Current Visit: Yes Status: Acute (4) Acute sinusitis Current Visit: Yes Status: Acute Priority: Medium (5) Lower extremity pain Current Visit: Yes Status: Acute (6) Back pain Current Visit: Yes Status: Acute Hospital Course: 46-year-old male that was admitted with symptoms of shortness of breath and cough. Patient found to have pneumonia. Treated with IV Zosyn and Levaquin slowly patient did show improvement. On CT patient was shown to have a thymic enlargement. Will be worked up by Dr. Singh and as an outpatient. Patient also did mention that he had problems with swallowing on one occasion. And 1 occasion 1 week ago. So patient will have speech eval as an outpatient. The patient will be discharged on Augmentin, albuterol and prednisone taper. Patient Condition at Discharge: Good Plan - Discharge Summary New Discharge Prescriptions: New predniSONE 10 mg PO DAILY #30 tab Continue Albuterol Inhaler [Ventolin Hfa Inhaler] 2 puff INHALATION RT-Q6H PRN #1 inhalation PRN Reason: Shortness Of Breath Amoxicillin/Potassium Clav [Augmentin 875-125 Tablet] 1 tab PO BID #14 tab Discontinued Albuterol Sulfate [Proair Hfa] 2 puff INHALATION RT-Q6H PRN PRN Reason: Shortness Of Breath Loratadine [Claritin] 10 mg PO DAILY Fluticasone Nasal [place] [Flonase Nasal [place]] 1 spray EA NOSTRIL DAILY Ipratropium Nebulized [Atrovent Nebulized] 0.5 mg INHALATION RT-Q6H Albuterol Nebulized [Ventolin Nebulized] 2.5 mg INHALATION RT-QID guaiFENesin [Mucinex] 1,200 mg PO DAILY PRN PRN Reason: Cough Discharge Medication List Albuterol Inhaler [Ventolin Hfa Inhaler] 2 puff INHALATION RT-Q6H PRN #1 inhalation 01/08/17 [Rx] Amoxicillin/Potassium Clav [Augmentin 875-125 Tablet] 1 tab PO BID #14 tab 01/08 [Rx] predniSONE 10 mg PO DAILY #30 tab 01/08/17 [Rx] Follow up Appointment(s)/Referral(s): None,Stated [Primary Care Provider] - 1-2 days
--- NOTE | 2017-01-08 18:59 | P.PN ---
Subjective 46-year-old -[place] Citizen male patient was transferred from [facility] because of shortness of breath and suspected pneumonia. The patient started having increased cough, along with some burning sensation over his neck area and the posterior throat. His cough was quite vigorous and he was bringing up minimal amount of sputum. No hemoptysis. No pleurisy. No chest pain. He started getting progressively weak and he also reported diminished appetite and subjective sensation of fever. For that reason the patient went to the [facility] with a CAT scan of the chest was done and showed hazy pulmonary infiltrates more so on the left lower lobe posteriorly and some minimal changes in the right side in addition. There was also some superior mediastinal fullness probably later to a thymic ordered and extension into the superior mediastinum. No lymphadenopathy. No lung masses or lesions. The patient accordingly was transferred to [facility] for further evaluation and treatment. He was seen by the medical group and he was started on antibiotics and currently is on a course of Levaquin. Since he came into the hospital, the patient has remained afebrile. No fever. No chills. No leukocytosis. He claims that he has underlying COPD. 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 Along with his ongoing respiratory difficulties the patient is having fullness and congestion his sinuses along with significant nasal congestion and drainage and postnasal drip. For all this reasons upon reconsultation was requested. No nausea. No vomiting. No change in mental status. No other complaints otherwise. On 01/06/2017 I'm seeing this patient for a follow-up. The patient claims that he still having difficulty in breathing. Not much of an improvement has occurred over the past 24 hours. He still having cough and chest congestion. No pleurisy. No hemoptysis. CAT scan of the neck was noted and the patient has some nonspecific lymphadenopathy. White cell count is not elevated at 11.6. The patient's pulse ox on room air is around 97%. Doppler of the lower extremity was done and it was negative for DVT. Meanwhile, the patient is still receiving Levaquin for his underlying bilateral pneumonia that was more so in the left upper lobe. Based on this finding, a CAT scan of the chest was ordered and unfortunately the CAT scan was done without contrast. As such the visual ability of the mediastinum is limited. The patient has questionable lymph nodes in the hilum and the mediastinal area. There is however bilateral patchy areas of infiltration suggestive of pneumonia and infiltrate in the left is worse compared to the CAT scan of the chest that was forwarded to us earlier from the outside hospital. Based on this, I'm going to broaden the patient's antibiotic coverage. On 01/07/2017 the patient has seen in follow-up. He states his breathing has improved from yesterday. However the burning in his throat persists although to a lesser degree. He denies chest pain fever or chills. He is currently on room air, in no acute distress. Hemodynamically stable. He is receiving the Tussionex cough syrup with relief from his coughing. Continues on Levaquin and Zosyn, IV Solu-Medrol and Flonase nasal spray which was added per attending. He has been afebrile. No acute distress noted. She did complain of lower back pain which was radiating to his left thigh which started yesterday for which Toradol was added per attending. On examination lung sounds are diminished bilaterally and more so over the right posterior base. No shortness of breath noted. No wheezing, no rales. On 01/08/2017 the patient is being seen in follow-up. His been significant improvement. The patient is afebrile. Less short of breath. No major respiratory distress at this point. No hypoxemia. Overall condition has improved and the patient is being considered for discharge today. Objective - Vital Signs Vital signs: Vital Signs Temp 97.1 F L 01/08/17 07:00 Pulse 84 01/08/17 11:58 Resp 16 01/08/17 11:15 BP 121/75 01/08/17 07:00 Pulse Ox 94 L 01/08/17 11:15 Intake & Output 01/07/17 01/08/17 01/08/17 18:59 06:59 18:59 Intake Total 290 290 600 Output Total 875 700 200 Balance -585 -410 400 Intake: Oral 290 290 600 Output: Urine 875 700 200 Other: # Voids 3 1 1 # Bowel Movements 0 - Exam Gen. appearance the patient is calm and comfortable and is not in acute distress. Head exam was generally normal. There was no scleral icterus or corneal arcus. Mucous membranes were moist. Neck is supple and there is positive JVDs. No lesions or masses can be palpated over the neck. There may be an underlying slightly enlargement of the thyroid gland. Yet there is no neck stiffness. No significant lymphadenopathy in his neck or the supraclavicular area. Lung sounds are diminished bilaterally. The patient is getting a very poor inspiratory effort. Unable to do a complete lung exam as the patient's breathing is quite erratic and he is taking only very shallow breaths. Scattered rales can be. The lung bases bilaterally.Cardiac exam revealed the PMI to be normally situated and sized. The rhythm was regular and no extrasystoles were noted during several minutes of auscultation. The first and second heart sounds were normal and physiologic splitting of the second heart sound was noted. There were no murmurs, rubs, clicks, or gallops.Abdominal exam revealed normal bowel sounds. The abdomen was soft, non- tender, and without masses, organomegaly, or appreciable enlargement of the abdominal aorta. Abdomen extremitiesExamination of the extremities revealed easily palpable radial, femoral and pedal pulses. There was no cyanosis, clubbing or edema. Neurologically the patient is awake 3, awake and alert and there is no focal neurological deficits. Skin examination is negative for any rashes or ulcers or wounds. Skeletal exam is normal for any fractures or any major deformities. - Labs CBC & Chem 7: 01/08/17 08:28 01/08/17 08:28 Labs: Abnormal Lab Results - Last 24 Hours (Table) 01/08/17 01/08/17 01/08/17 Range/Units 07:23 08:28 08:28 Lymphocytes # 0.7 L (1.0-4.8) k/uL Glucose 182 H (74-99) mg/dL POC Glucose (mg/dL) 149 H (75-99) mg/dL 01/08/17 Range/Units 11:43 Lymphocytes # (1.0-4.8) k/uL Glucose (74-99) mg/dL POC Glucose (mg/dL) 140 H (75-99) mg/dL Microbiology - Last 24 Hours (Table) 01/04/17 07:12 Blood Culture - Preliminary Blood No Growth after 96 hours 01/04/17 03:50 Blood Culture - Preliminary Blood No Growth after 96 hours Assessment and Plan Plan: Assessment 1 acute pneumonia most significant in the left lower lobe posteriorly along with some limited haziness in the right. Possible community-acquired. No evidence of any chronic interstitial lung disease or any advanced emphysematous change on the CAT scan of the chest 01/07/2017, the patient verbalizes some improvement in shortness of breath and burning in throat, cough and congestion. A repeat CAT scan of the chest was done and there is worsening in the left lung pulmonary infiltrate compared to original CAT scan that was forwarded to us from the outside hospital. As such there is evidence of interval progression. The patient has been receiving Levaquin over the past 24 hours. The CAT scan was done without contrast and was limited in terms of ability to assess the mediastinum. On the patient's patient in follow-up. Clinically much improved. The patient can be discharged home on antibiotics orally to be followed up on outpatient basis. 2 questionable thymic growth in the anterior mediastinum. We'll review this with radiology 3 sinusitis suspected in addition to ongoing pain in the posterior oropharynx. Currently on Flonase nasal spray 4 smoker 5 occupational exposure to fiberglass dust Plan Discharge this patient home on a prednisone burst taper, Augmentin and albuterol rescue inhaler. Outpatient follow-up regarding the mediastinal lymphadenopathy and a cervical of adenopathy. We'll follow.
== END 2017-01-08 15:57 | disposition home or self-care (01) | DRG 190 ==
LOC: EC 02:52 → 4MS4W 03:20
PROVIDERS: ADMIT Internal Medicine; ATTEND Internal Medicine
DX: J44.0 Chronic obstructive pulmonary disease with (acute) lower respiratory infection (principal); J18.9 Pneumonia, unspecified organism; J96.01 Acute respiratory failure with hypoxia; J44.1 Chronic obstructive pulmonary disease with (acute) exacerbation; F17.200 Nicotine dependence, unspecified, uncomplicated; J01.90 Acute sinusitis, unspecified; R13.10 Dysphagia, unspecified; Y95 Nosocomial condition; M79.606 Pain in leg, unspecified; Z79.899 Other long term (current) drug therapy; Z82.49 Family history of ischemic heart disease and other diseases of the circulatory system
CPT/HCPCS: 70491; 71020; 71250; 80048; 80053; 81003; 83605; 85025; 87040; 87070; 87205; 94640; 94760; 96365; 96375; 99285

== ENCOUNTER → 2017-01-14 | Outpatient (CLI) | payer BC ==
--- NOTE | 2017-01-14 13:05 | FL ---
Modified barium swallow. HISTORY: Dysphagia. Modified barium swallow was performed with the department of speech pathology. The patient was prese nted with various consistencies of barium. There is no evidence for aspiration or penetration. Full report is to follow from the department of speech pathology. Impression: Normal study.
== END | disposition home or self-care (01) ==
LOC: RADFLMAIN 11:17
PROVIDERS: ATTEND Internal Medicine
DX: R13.10 Dysphagia, unspecified (principal)
CPT/HCPCS: 74230

== ENCOUNTER → 2017-03-04 | Outpatient (CLI) | payer BC ==
--- NOTE | 2017-03-04 13:51 | CT ---
EXAMINATION TYPE: CT chest w con DATE OF EXAM: 03/04/2017 COMPARISON: 01/06/2017 HISTORY: Cervical Lymphadenopathy CT DLP: 243.2 mGycm Automated exposure control for dose reduction was used. CONTRAST: CT scan of the chest is performed with IV Contrast, patient injected with 100 mL of Omnipaque 300. FINDINGS: LUNGS: There is a 3 mm nodule posterior segment right upper lobe axial image 17 which is stable. Ther e is a oval nodular density left upper lobe axial image 33 measuring 4 mm stable. Areas of subsegmental consolidation posteriorly most likely the basis of atelectasis. No pleural effu teddy or pneumothorax. Previously described areas of consolidation of essentially resolved. No pneumothorax. Tiny blebs involving the lung apices noted. No interstitial edema. MEDIASTINUM: Soft tissue density within the anterior mediastinum likely related to residual thymic ti ssue. No pathologic adenopathy identified. OTHER: No additional significant abnormality is seen. IMPRESSION: 1. Interval near complete resolution of previously described areas of consolidation. 2. Stable less than 5 mm pulmonary nodules. Follow-up exam in 6 months could be obtained to confirm s tability over a two-year period.
== END | disposition home or self-care (01) ==
LOC: RADCTMAIN 12:55
PROVIDERS: ATTEND Internal Medicine Critical Care Medicine
DX: R91.8 Other nonspecific abnormal finding of lung field (principal)
CPT/HCPCS: 71260; Q9967